=== PATIENT | female | born 1960 | race Caucasian/White ===

== ENCOUNTER 2022-05-18 17:57 | Emergency (ER) | payer BC, MEDICAID ==
[~2022-05-18] VITALS: Ht 167.6 cm; Wt 83.5 kg
[2022-05-18] MEDS ORDERED: IV NORMAL SALINE 500 ML BAG IV ONE (18:15)
[2022-05-18 18:39] LABS: HEMATOCRIT 31.2 % (31.2-41.9); MEAN CORPUSCULAR HEMOGLOBIN 31.2 uug (24.7-32.8); MEAN CORPUSCULAR VOLUME 96.5 fL (75.5-95.3); PLATELET COUNT (AUTO) 267 K/uL (179-408)
[2022-05-18] MEDS ORDERED: OXYCODONE/APAP 5-325 MG TABLET PO ONE (18:45)
--- NOTE | 2022-05-18 18:45 | NUR ---
SHARRI [id number] from home with c/o SOB, pt to room 2A via [facility]. Pt states hx of COPD and asthma, states right knee replacement at [facility] on 04/25/22. Pt was given Albuterol HHN [place] in route to ER. Pt arrives A/Ox3, states she feels much better and no acute resp distress noted at this time. Placed on campus monitor, BP and pulse ox. Room air saturation=91%, placed on O2 2L via NC.
[2022-05-18 18:48] LABS: CARBON DIOXIDE 30 mmol/L (21-32); CHLORIDE 99 mmol/L (98-107); CREATININE 0.7 mg/dL (0.6-1.3); GLUCOSE 87 mg/dL (74-106); POTASSIUM 3.7 mmol/L (3.5-5.1); UREA NITROGEN, BLOOD 7 mg/dL (7-18)
[2022-05-18 19:01] LABS: ALANINE AMINOTRANSFERASE 18 U/L (14-59); ALKALINE PHOSPHATASE 187 U/L (50-136); ASPARTATE AMINOTRANSFERASE 32 U/L (15-37); BILIRUBIN,DIRECT 0.1 mg/dL (0.0-0.2); BILIRUBIN,TOTAL 0.2 mg/dL (0.2-1.0); TOTAL PROTEIN, SERUM 7.5 g/dL (6.4-8.2)
[2022-05-18] MEDS ORDERED: OXYCODONE/APAP 5-325 MG TABLET ONE (19:12)
--- NOTE | 2022-05-18 20:00 | NUR ---
Patient's IV catheter no longer working. Will replace another
[2022-05-18] MEDS ORDERED: LORAZEPAM 2 MG/1 ML VIAL ONE (22:38)
[2022-05-18] MEDS ORDERED: LORAZEPAM 2 MG/1 ML VIAL IV ONE (22:45)
[2022-05-18] MEDS ORDERED: IOHEXOL 350 100 ML INFUS..BTL ONE ×2 (23:04→23:21)
[2022-05-18] MEDS ORDERED: SWABABLE VALVE TRANSFER SET EA MC ONE ×2 (23:04→23:21)
[2022-05-18] MEDS ORDERED: IV NORMAL SALINE 250 ML IV ONE ×2 (23:04→23:21)
--- NOTE | 2022-05-19 00:30 | NUR ---
Patient was brought back from CT. histotechnologist stated patients 18G on left upper arm blew out. Placed hot pack on LT upper extremeties.
--- NOTE | 2022-05-19 00:54 | NUR ---
Dr. Medrano speaking with Dr. Ng of [facility].
[2022-05-19] MEDS ORDERED: ENOXAPARIN SODIUM 80 MG/0.8 ML DISP.SYRIN SQ ONE ×2 (01:15→01:35)
[2022-05-19] MEDS ORDERED: OXYCODONE/APAP 5-325 MG TABLET PO ONE ×2 (01:15→06:30)
[2022-05-19] MEDS ORDERED: OXYCODONE/APAP 5-325 MG TABLET ONE ×2 (01:34→06:29)
--- NOTE | 2022-05-19 01:45 | NUR ---
Patient's upper extremities are tender to touch and swollen from blown out IV's. Dr Medrano aware. Placed hot packs.
[2022-05-19] MEDS ORDERED: LORAZEPAM 2 MG/1 ML VIAL IV ONE (02:15)
[2022-05-19] MEDS ORDERED: LORAZEPAM 0.5 MG TABLET PO ONE (02:30)
--- NOTE | 2022-05-19 02:33 | NUR ---
Patient ambulated to toilet standby assist. Voided large clear yellow urine.
[2022-05-19] MEDS ORDERED: AZITHROMYCIN 250 MG TABLET ONE (02:52)
[2022-05-19] MEDS ORDERED: LORAZEPAM 1 MG TABLET ONE (02:53)
[2022-05-19] MEDS ORDERED: AZITHROMYCIN 250 MG TABLET PO ONE (03:00)
--- NOTE | 2022-05-19 03:33 | NUR ---
COVID results and Clinical Data faxed to [facility]
--- NOTE | 2022-05-19 04:19 | NUR ---
Spoke to pilot supervisor at [facility]. Admitting doctor is Dr. Ng. Patient has been admitted to 5W Room 509.
--- NOTE | 2022-05-19 04:25 | NUR ---
Called [place] to give report to RN. RN stated bed is being cleaned and will take 1 hour for cleaning. Will call again in 1 hour.
--- NOTE | 2022-05-19 05:39 | NUR ---
Report given to Shmuel SIDDIQUI at [facility]
--- NOTE | 2022-05-19 05:46 | NUR ---
Called [facility] ambulance for [place] [facility] transfer. ETA waste picker time is 7am-8am.
--- NOTE | 2022-05-19 06:54 | NUR ---
Report given to Ronni SIDDIQUI
--- NOTE | 2022-05-19 08:27 | NUR ---
PT WAS TRANSFERED TO [facility]IA [facility], REPORT WAS GIVEN TO AMBULANCE RN.
== END 2022-05-19 08:31 | disposition short-term general hospital (02) ==
LOC: ER 17:57
DX: J96.01 Acute respiratory failure with hypoxia (principal); F41.9 Anxiety disorder, unspecified; M25.561 Pain in right knee; Z96.651 Presence of right artificial knee joint; R91.8 Other nonspecific abnormal finding of lung field; R79.1 Abnormal coagulation profile; Z20.822 Contact with and (suspected) exposure to COVID-19; E78.5 Hyperlipidemia, unspecified; E03.9 Hypothyroidism, unspecified; J44.9 Chronic obstructive pulmonary disease, unspecified; I25.10 Atherosclerotic heart disease of native coronary artery without angina pectoris; Z88.0 Allergy status to penicillin
CPT/HCPCS: 99285; 96374; 71275; 71045; 96361; 87426; 80076; 80048; 83880; 85025; 84145; 85379; 85730; 87040 ×2; 84484; 36415; 93005; 83605; 96372; J2060; Q9967; J7040; J1650; Q0144